=== PATIENT | female | born 1960 | race Caucasian/White ===

== ENCOUNTER → 2021-04-03 08:47 | Outpatient (CLI) | payer BC, SELFPAY ==
[2021-04-03 09:54] LABS: Absolute Lymphocyte Count 2.19 X10^3/uL (0.83-4.51); Absolute Neutrophil Count 3.9 X10^3/uL (2.0-7.7); Basophil# 0.07 X10^3/uL; Eosinophil# 0.15 X10^3/uL; Eosinophils% 2.2 % (0-5); Hematocrit 40.4 % (37-47); Hemoglobin 12.9 g/dL (12.0-15.0); Lymphocyte # 2.19 X10^3/ul (0.83-4.51); Lymphocyte % 32.2 % (19-41); Mean Corp Hgb Conc 31.9 g/dL (32-36); Mean Corpuscular Hgb 28.9 pg (27.0-32.0); Mean Corpuscular Volume 90.4 fL (81-99); Mean Platelet Vol. 10.3 fl (6.2-12.0); Monocyte# 0.49 X10^3/uL; Monocyte% 7.2 % (0-10); NRBC Flagged by Analyzer 0 % (0-5); Neutrophil # 3.88 X10^3/uL (2.7-7.7); Platelet Count 357 K/mm3 (150-450); RBC Distribution Width CV 14.2 % (11.6-14.6); RBC Distribution Width SD 46.8 fl (35.1-43.9); Red Blood Count 4.47 M/mm3 (4.2-5.4); White Blood Count 6.8 K/mm3 (4.4-11.0)
[2021-04-03 10:45] LABS: Anion Gap 10 (5-15); BUN 10 mg/dL (7-18); BUN/Creat Ratio 13.4 RATIO (10-20); Calcium,Total 9.4 mg/dL (8.5-10.1); Chloride 105 mmol/L (98-107); Creatinine, Serum 0.75 mg/dL (0.55-1.02); EST Glomerular Filtration Rate 85 mL/min (>60); Est Glom Filt Rate - Afr Amer 102 mL/min (>60); Glucose 121 mg/dL (74-106); Potassium 3.9 mmol/L (3.5-5.1); Sodium Level 141 mmol/L (136-145)
== END ==
PROVIDERS: PCP Family Medicine; Referring Provider Physician Assistant Surgical; Visit Provider Physician Assistant Surgical
DX: Z01.818 Encounter for other preprocedural examination (principal)
CPT/HCPCS: 36415; 80048; 85025

== ENCOUNTER 2022-04-23 12:14 | Day surgery (SDC) | payer OTHER, SELFPAY ==
[2022-04-23] VITALS (8 sets, daily range): BP systolic 90–148; BP diastolic 52–78; PULSE 60–82; RESP 16–18; TEMP 36.4–37.1; O2SAT 94–99; BMI 29.8
--- NOTE | 2022-04-23 12:16 | BI_ITS ---
SURGICAL BREAST SPECIMEN RADIOGRAPH CLINICAL: Document presence of tissue clip marker in biopsy specimen. FINDINGS: Specimen shows presence of tissue clip marker. Electronically Signed: Booker Reyna MD at 15:12 EDT , BI/Breast Biopsy Specimen IMPRESSION: undefined
--- NOTE | 2022-04-23 13:45 | BREAST_PTH ---
PATIENT: MINNIE CHASE LOC: [facility] [place] U#:[id number] AGE/SX: 61/F ROOM: RE04/23/[address]: Dr. Onelia Durbin MD : 1960 BED: DIS: 04/23/2022 SPEC #: [id number] RECD: 04/23/22 15:23 STATUS: NICO REJulián #: [id number] BLANCA: 04/23/22 13:[address]: Onelia Durbin DEPT: SURGICAL PATHOLOGY RECD BY: Sujata Gould ENTERED: 04/24/22 08:24 SP TYPE: BREAST OTHR DR: Dr. Jomar Storey, Tissues: Right breast, NOS Procedures: Surgery Specimen Level V HEADER OPERATION: Right breast biopsy via wire localization PRE-OP DIAGNOSIS: Radial scar on needle core biopsy of right breast TISSUE SUBMITTED: Right breast tissue MICROSCOPIC DIAGNOSIS Right breast, lumpectomy: Focal atypical intraductal hyperplasia. Usual intraductal hyperplasia, florid. Fibrocystic change with focal rupture and associated reactive and reparative change. Intraductal papilloma and adenosis. AM:eunice 04/29/2022 MICROSCOPIC DESCRIPTION Slides are reviewed. GROSS DESCRIPTION Received in fixative is one container labeled with the patient's name and designated right breast tissue. The specimen consists of a lumpectomy specimen containing a metal wire and three sutures. No orientation is provided. The specimen measures 6 x 5 x 2.2 cm and weighs 27 gm. The surface with double suture is inked in blue ink. The opposite surface is inked in black ink. The surface with single short suture is inked in yellow ink and the opposite surface is inked in red ink. The surface with single long suture is inked in green ink and the opposite surface is inked in orange ink. Serial sections reveal yellow-white cut surfaces. No distinct mass lesion is identified. Pole Framer Machine sections are submitted in 12 cassettes as follows: 1 & 2 - perpendicular inked margins, 3-12 - Pole Framer Machine sections of breast parenchyma. Note, sections are submitted after additional fixation. / AM:eunice 04/24/2022 The remainder of the specimen is submitted in cassettes 13-19. / AM:eunice 04/26/2022 TC:? CPT: 33647
[2022-04-23] MEDS: Lactated Ringers 1,000 ML 75 ML IV (13:49)
[2022-04-23] MEDS: Cefazolin 2 GM in 0.9% Normal Saline 100 ML IV (14:14)
[2022-04-23] MEDS: Lidocaine 2% /Epi 1:100 (50ml) 50 ML Vial (14:30)
--- NOTE | 2022-04-23 14:49 | OP.PCM_ITS ---
Report of Operation Date of Procedure: 04/23/22 Pre-Operative Diagnosis: radial scar of right breast via needle core biopsy Post-Operative Diagnosis: same Surgery/Procedure Performed:: excisional right breast biopsy via wire localization Surgeon: Onelia Durbin Type of Anesthesia: MAC/Supplemental/Local Anesthesiologist: Arnold Lala Specimen's removed: right breast tissue Estimated Blood Loss (mL): < 5 ml Fluids Replaced: 500 ml RL Description of Procedure: After informed consent was given, the patient was brought into the Breast Stereotactic Radiology suite. Appropriate time out protocol was followed. The patient was then placed in the prone position on the [place] stereotactic table. The patient?s right breast was placed in the opening at the head of the table. A automotive worker foreman compression mammogram was then obtained in the lateral view. The marker clip that was previously placed was identified. Stereo pictures of the lesion were then taken for XYZ coordinates. The Kopans needle was then positioned where it would be entering into the patient?s breast. The skin at this site was then cleansed with a surgical skin preparation. The skin and subcutaneous tissues at this site were then infiltrated with 1% xylocaine. The Kopans needle was then positioned into the patient?s breast at the proper coordinates of depth. A automotive worker foreman film was obtained which revealed the wire in proper position. The patient was then placed in the supine position and the wire was taped into place. A unilateral mammogram in the CC and MLO view were then taken for use in the OR. The patient tolerated this portion of the procedure well and was brought to the AC awaiting surgery in the OR. The patient was then brought to the Operating Room. Appropriate time out protocol was followed. The patient was then placed on the operating table in the supine position. A wire had already been placed in the stereotactic biopsy room in the radiology department as described above. The right breast with the wire in placed was then prepped with a sterile surgical skin preparation and sterile surgical drap es were placed. The skin and subcutaneous tissues at the site of the breast lesion was then infiltrated with 1% xylocaine with epinephrine. A transverse incision was then made at the wire entrance site in the lower outer quadrant with a 15 blade scalpel and carried down through to the subcutaneous tissues. Hemostasis was controlled with electrocautery. The wire was then palpated out within the breast tissue. The breast tissue surrounding the wire was then carefully palpated out and from the surrounding tissues using electrocautery. The breast tissue, once from the breast, was then forwarded to the radiology department, where a specimen mammogram revealed that the marker clip was within the specimen. The breast tissue was then forwarded to pathology for analysis. The wound cavity was carefully examined. No further suspicious tissue was palpated or visualized. Hemostasis was carefully controlled with electrocautery. The subdermal tissues were then approximated with vicryl suture. The incision was then reapproximated close using running monocryl suture. Cavilon and steristrips were then placed to reinforce the skin closure. Sponge, needle, and instrument count were verified and correct at the time of skin closure. A sterile dressing was then applied. The patient was then brought to the Recovery Room in stable condition. Complications none noted Admit VTE Documentation VTE Present on Admission: Yes VTE Mechan Device Prophylaxis: SCD's
== END 2022-04-23 16:30 | disposition home or self-care (01) ==
LOC: SDC 12:14 → AC 12:17
PROVIDERS: PCP Family Medicine; Visit Provider Surgery
PROC: (CPT 19125; principal; 2022-04-23 13:30)
DX: D24.1 Benign neoplasm of right breast (principal); N60.91 Unspecified benign mammary dysplasia of right breast; N60.21 Fibroadenosis of right breast; N60.11 Diffuse cystic mastopathy of right breast; N64.89 Other specified disorders of breast; K21.9 Gastro-esophageal reflux disease without esophagitis; Z78.0 Asymptomatic menopausal state; Z79.899 Other long term (current) drug therapy
CPT/HCPCS: 19125; 00400; 19281; 76098; 88305; 88307; J7120; J2405